=== PATIENT | female | born 1950 | race American Indian/Alaskan Native ===

== ENCOUNTER 2020-03-15 19:46 | Inpatient (IN) | payer MEDICARE, SELFPAY ==
[2020-03-15 20:19] VITALS: BP 160/86; PULSE 76; RESP 17; TEMP 36.8; O2SAT 96; BMI 26.5
[2020-03-15 21:05] LABS: Basophils % 0.3 %; Eosinophils # 0.1 10^3/uL (0.0-0.8); Eosinophils % 1.2 %; Hematocrit 36.6 % (37.0-47.0); Hemoglobin 12.5 g/dL (11.5-15.3); Lymphocytes # 1.6 10^3/uL (0.8-4.8); Lymphocytes % 26.3 %; Mean Corpuscular HGB Conc 34.2 g/dL (30.0-36.0); Mean Corpuscular Hemoglobin 30.2 pg (28.0-34.0); Mean Corpuscular Volume 88.4 fL (81-99); Mean Platelet Volume 11.1 fL (7.4-10.4); Monocytes # 0.8 10^3/uL (0.2-0.9); Monocytes % 13.1 %; Neutrophils # 3.49 10^3/uL (1.8-7.7); Neutrophils % 58.8 %; Nucleated Red Blood Cells % 0 %; Platelet Count 238 10^3/cmm (130-400); Red Blood Count 4.14 10^6/uL (4.1-5.3); Red Cell Distribution Width 11.7 % (12.1-15.1); White Blood Count 5.9 10^3/uL (4.0-10.0)
[2020-03-15 21:32] LABS: Alanine Aminotransferase 17 U/L (0-33); Albumin Level 4.6 g/dL (3.5-5.2); Alkaline Phosphatase 69 IU/L (35-105); Anion Gap 15.7 (5-19); Aspartate Amino Transferase 27 U/L (0-32); Blood Urea Nitrogen 14 mg/dL (8-23); Calcium 9.5 mg/dL (8.5-10.5); Carbon Dioxide 26 mmol/L (22-29); Chloride 85 mmol/L (98-107); Globulin 2.3 g/dL (1.3-4.6); Glucose 128 mg/dL (65-115); Lipase 16 U/L (13-60); Osmolality Calculated 254 mOsm/kg (285-295); Potassium 3.7 mmol/L (3.5-5.1); Sodium 123 mmol/L (136-145); Total Bilirubin 0.5 mg/dL (0.15-1.2); Total Protein 6.9 g/dL (6.6-8.7)
--- NOTE | 2020-03-15 21:37 | XRR_ITS ---
PROCEDURE INFORMATION: Exam: XR Chest, 1 View Exam date and time: 03/15/2020 9:48 PM Age: 69 years old Clinical indication: Smoker's cough; Patient HX: Cough 1 month, weight loss TECHNIQUE: Imaging protocol: XR of the chest Views: 1 view. COMPARISON: CR Chest 1 [place] [id number] 10/18/2017 10:06 PM FINDINGS: Lungs: Calcified mediastinal and hilar lymph nodes. Minimal focal irregular densities right mid and lower lung most likely reflecting scarring. Pleural space: Unremarkable. No pleural effusion. No pneumothorax. Heart/Mediastinum: Unremarkable. No cardiomegaly. Vasculature: Similar curvilinear opacity at the right rosa isela probably vasculature. Bones/joints: Unremarkable. XR/XR chest 1V portable [id number] IMPRESSION: 1. Stable chest without acute process. 2. Calcified granulomata.
--- NOTE | 2020-03-15 21:37 | CTR_ITS ---
PROCEDURE INFORMATION: Exam: CT Abdomen And Pelvis With Contrast Exam date and time: 03/15/2020 9:41 PM Age: 69 years old Clinical indication: Abdominal pain; Generalized; Prior surgery; Surgery date: 6+ months; Surgery type: Appy; Additional info: Abd pain TECHNIQUE: Imaging protocol: Computed tomography of the abdomen and pelvis with intravenous contrast. Radiation optimization: All CT scans at this facility use at least one of these dose optimization techniques: automated exposure control; mA and/or kV adjustment per patient size (includes targeted exams where dose is matched to clinical indication); or iterative reconstruction. Contrast material: OMNI; Contrast volume: 95 ml; Contrast route: INTRAVENOUS (IV); COMPARISON: No relevant prior studies available. RADIATION DOSE METRICS: Total DLP (mGy-cm): 613.22 FINDINGS: Mediastinal space: Small hiatal hernia. Liver: Calcified granulomas in the liver. Gallbladder and bile ducts: Distended gallbladder without visible wall thickening. The bile ducts are normal. Pancreas: Normal. No ductal dilation. Spleen: Calcified granulomas in the spleen. Adrenals: Normal. No mass. Kidneys and ureters: Likely benign cyst in the right kidney, Hounsfield units less than 20. Subcentimeter hypodensities in the left kidney are too small to characterize. No follow-up is recommended. Stomach and bowel: Mild diverticulosis of the descending and sigmoid colon without diverticulitis. The small bowel is unremarkable. Appendix: The appendix is not visualized. Intraperitoneal space: Unremarkable. No free air. No significant fluid collection. Vasculature: Unremarkable. No abdominal aortic aneurysm. Lymph nodes: Unremarkable. No enlarged lymph nodes. Bladder: Unremarkable as visualized. Reproductive: Prominent endometrium measuring approximately 2.1 cm in thickness. The ovaries are normal. Bones/joints: Degenerative lumbar spine with mild curvature. No compression fracture. Soft tissues: Unremarkable. CT/CT abdomen pelvis w con* [id number] IMPRESSION: 1. No acute abnormality identified in the abdomen or pelvis. 2. Thickened endometrium measuring up to 2.1 cm. A neoplastic process or hyperplasia is not excluded. Ultrasound follow-up recommended. 3. Fluid distended gallbladder with no visible wall thickening or inflammation. COMMENTS: Consistent with the [employer] [place] [employer]'s Incidental Findings Committee white paper (J Am Anthony Radiol 2018): Any incidental renal lesion less than 1.0 cm or classified as too small to characterize, or any incidental cystic renal lesion characterized as simple-appearing, is likely benign. No follow-up imaging is recommended for these lesions per consensus recommendations based on imaging criteria. Radiation Dose CTDIVOL = (mGy): DLP = 613.22 (mGy-cm)
--- NOTE | 2020-03-15 21:44 | W.ED.ABDPA2 ---
HPI - Abdominal Pain General: Chief Complaint: Abdominal Pain Stated Complaint: n/v/d Time Seen by Provider: 03/15/20 21:37 Source: patient Mode of arrival: ambulatory Limitations: no limitations History of Present Illness: HPI narrative: 69-year-old female who states she has had nausea along with vomiting along with cough abdominal pain over the last month. She states she had a 20 pound weight loss and also has been feeling generally weak. She denies any worsening or improving factors. She denies any fevers. Associated Symptoms: Reports nausea and vomiting; Denies chills, dysuria and fever(s) Review of Systems Const: Denies: fever(s), chills, body aches or change in appetite Eyes: Denies: blurry vision or eye discomfort ENMT: Denies: throat pain or dental pain Card: Denies: chest pain Resp: Denies: dyspnea GI: Reports: nausea and vomiting : Denies: dysuria Musc: Denies: neck pain or back pain Skin/Breast: Denies: rash Neuro: Denies: headache(s) Psych: Denies: depression Gavin/Lymph: Denies: easy bruising All/Imm: Denies: urticaria Physical Exam Const: COMMON NORMALS: no acute distress, patient oriented x3 and healthy appearing HENMT: COMMON NORMALS: normocephalic and atraumatic HEAD & SCALP: normocephalic and atraumatic Eye: COMMON NORMALS: Equal, round and reactive pupils present and EOMs intact bilaterally PUPIL: Yes Equal, round and reactive pupils present Neck/C-Spine: COMMON NORMALS: full ROM and supple Chest: COMMONS NORMALS: normal inspection of the chest and normal palpation of entire chest wall Resp: COMMON NORMALS: normal respiratory effort, No retractions, No use of accessory muscles and clear to auscultation bilaterally AUSCULTATION: clear to auscultation bilaterally Cardio: COMMON NORMALS: regular rate, regular rhythm and No murmurs present (Cardio) RATE: regular rate RHYTHM: regular rhythm GI: COMMON NORMALS: Normal to inspection, nondistended, normoactive bowel sounds present, Soft to palpation, non-tender and no masses PALPATION: Yes Soft to palpation Extremity: COMMON NORMALS: normal to inspection and full ROM Neuro: COMMON NORMALS: patient oriented x3, moves all extremities and no focal motor deficits Psych: COMMON NORMALS: mental status grossly normal, Normal thought process present and cooperative THOUGHT PROCESS: Normal thought process present Skin: COMMON NORMALS: no rashes or lesions noted and no wounds GENERAL SKIN EXAM: no rashes or lesions noted Course Vital Signs: Vital signs: Vital Signs Temperature 98.2 F 03/15/20 20:19 Pulse Rate 71 03/15/20 23:01 Respiratory Rate 18 03/15/20 23:01 Blood Pressure 168/100 03/15/20 23:11 Pulse Oximetry 98 03/15/20 23:01 MDM - Abdominal Pain MDM Narrative: Medical decision making narrative: Mary is a 69-year-old female presents here with generalized weakness is found to have hyponatremia. Patient also has a cystitis likely contributing to her weakness. I spoke to hospitalist Dr. Canas and will admit for IV fluids along with antibiotics. Patient has been stable on the ER. Lab Data: Labs: Lab Results 03/15/20 03/15/20 03/15/20 Range/Units 20:56 20:56 21:56 WBC 5.9 (4.0-10.0) 10^3/ uL RBC 4.14 (4.1-5.3) 10^6/u L Hgb 12.5 (11.5-15.3) g/dL Hct 36.6 L (37.0-47.0) % MCV 88.4 (81-99) fL MCH 30.2 (28.0-34.0) pg MCHC 34.2 (30.0-36.0) g/dL RDW 11.7 L (12.1-15.1) % Plt Count 238 (130-400) 10^3/c mm MPV 11.1 H (7.4-10.4) fL Neut % (Auto) 58.8 % Lymph % (Auto) 26.3 % Andrew % (Auto) 13.1 % Eos % (Auto) 1.2 % Baso % (Auto) 0.3 % Neut # (Auto) 3.49 (1.8-7.7) 10^3/u L Lymph # (Auto) 1.6 (0.8-4.8) 10^3/u L Andrew # (Auto) 0.8 (0.2-0.9) 10^3/u L Eos # (Auto) 0.1 (0.0-0.8) 10^3/u L Baso # (Auto) 0.0 (0.0-0.1) 10^3/u L Nucleated RBC % (a uto) 0 % Nucleated RBCs # 0.0 /100WBC Sodium 123 L (136-145) mmol/L Potassium 3.7 (3.5-5.1) mmol/L Chloride 85 L (98-107) mmol/L Carbon Dioxide 26 (22-29) mmol/L Anion Gap 15.7 (5-19) BUN 14 (8-23) mg/dL Creatinine 0.8 (0.5-0.9) mg/dL GFR Calculation Not Reportable Glucose 128 H (65-115) mg/dL Calculated Osmolal ity 254 L (285-295) mOsm/k g Calcium 9.5 (8.5-10.5) mg/dL Total Bilirubin 0.5 (0.15-1.2) mg/dL AST 27 (0-32) U/L ALT 17 (0-33) U/L Alkaline Phosphata se 69 (35-105) IU/L Total Protein 6.9 (6.6-8.7) g/dL Albumin 4.6 (3.5-5.2) g/dL Globulin 2.3 (1.3-4.6) g/dL Lipase 16 (13-60) U/L Urine Color Yellow (Yellow) Urine Appearance Cloudy (CLEAR) Urine pH 5 (5-7) Ur Specific Gravit y 1.020 (1.005-1.030) Urine Protein Trace (Negative) Urine Glucose (UA) Norm (Normal) Urine Ketones 1+ H (Negative) Urine Blood 3+ H (Negative) Urine Nitrate Negative (Negative) Urine Bilirubin Neg (NEGATIVE) Urine Urobilinogen Norm (Negative) mg/dL Ur Leukocyte Jolie ase 2+ H (Negative) Urine RBC 5-10 H (0-2) /hpf Urine WBC 25-40 H (0-5) /hpf Ur Squamous Epith Cells 5-10 H (0-5) Calcium Oxalate Cr ystal Too numerous to c nt H /hpf Amorphous Sediment Not Reportable Urine Bacteria 4+ H (NONE) Imaging Data ^: CT Abd/Pel: Attestation: I personally reviewed and interpreted this imaging study as follows: Radiologist's impression: [facility] [address] [place] [address] CT Scan Report Signed Patient: Carolina Mcgrath Unit #: [id number] : [id number] Age/Sex: 69 / F ADM Date: 03/15/20 Loc: ER Room/Bed: Attending Dr: Ordering Provider/Ordering MD: Zora Lindquist MD Date of Service: 03/15/20 Procedure(s): CT abdomen pelvis w con* [id number] Accession Number(s): [id number] Report Number: [id number] PROCEDURE INFORMATION: Exam: CT Abdomen And Pelvis With Contrast Exam date and time: 03/15/2020 9:41 PM Age: 69 years old Clinical indication: Abdominal pain; Generalized; Prior surgery; Surgery date: 6+ months; Surgery type: Appy; Additional info: Abd pain TECHNIQUE: Imaging protocol: Computed tomography of the abdomen and pelvis with intravenous contrast. Radiation optimization: All CT scans at this facility use at least one of these dose optimization techniques: automated exposure control; mA and/or kV adjustment per patient size (includes targeted exams where dose is matched to clinical indication); or iterative reconstruction. Contrast material: OMNI; Contrast volume: 95 ml; Contrast route: INTRAVENOUS (IV); COMPARISON: No relevant prior studies available. RADIATION DOSE METRICS: Total DLP (mGy-cm): 613.22 FINDINGS: Mediastinal space: Small hiatal hernia. Liver: Calcified granulomas in the liver. Gallbladder and bile ducts: Distended gallbladder without visible wall thickening. The bile ducts are normal. Pancreas: Normal. No ductal dilation. Spleen: Calcified granulomas in the spleen. Adrenals: Normal. No mass. Kidneys and ureters: Likely benign cyst in the right kidney, Hounsfield units less than 20. Subcentimeter hypodensities in the left kidney are too small to characterize. No follow-up is recommended. Stomach and bowel: Mild diverticulosis of the descending and sigmoid colon without diverticulitis. The small bowel is unremarkable. Appendix: The appendix is not visualized. Intraperitoneal space: Unremarkable. No free air. No significant fluid collection. Vasculature: Unremarkable. No abdominal aortic aneurysm. Lymph nodes: Unremarkable. No enlarged lymph nodes. Bladder: Unremarkable as visualized. Reproductive: Prominent endometrium measuring approximately 2.1 cm in thickness. The ovaries are normal. Bones/joints: Degenerative lumbar spine with mild curvature. No compression fracture. Soft tissues: Unremarkable. CT/CT abdomen pelvis w con* [id number] IMPRESSION: 1. No acute abnormality identified in the abdomen or pelvis. 2. Thickened endometrium measuring up to 2.1 cm. A neoplastic process or hyperplasia is not excluded. Ultrasound follow-up recommended. 3. Fluid distended gallbladder with no visible wall thickening or inflammation. Discharge Plan Discharge Patient Disposition: Admitted As Inpatient Admit Provider: Regla Jones Clinical Impression: Acute hyponatremia Acute cystitis Qualifiers: Hematuria presence: without hematuria Qualified Code(s): N30.00 - Acute cystitis without hematuria Condition: Stable Referrals: Connie Pedraza MD [Primary Care Provider] - Coding Level of Care Code ED Valve Setter for Chg Fwd Exam Comprehensive
[2020-03-15] MEDS: iohexol 300 mg/mL 100 mL Btl 95 ML IV (22:26)
[2020-03-15] MEDS: ondansetron 2 mg/ML SDV 2 mL 4 MG IVP (22:59)
[2020-03-15] MEDS: sodium chloride 0.9% 1,000 ML 999 ML IV (22:59)
[2020-03-15 23:01] VITALS: PULSE 71; RESP 18; O2SAT 98
[2020-03-15 23:09] LABS: Urine Appearance Cloudy (CLEAR); Urine Color Yellow (Yellow)
[2020-03-15 23:10] LABS: Add Urine Microscopic? YES; Bilirubin Urine Neg (NEGATIVE); Blood Urine 3+ (Negative); Glucose Urine UA Norm (Normal); Ketones Urine 1+ (Negative); Leukocyte Esterase Urine 2+ (Negative); Nitrate Urine Negative (Negative); Protein Urine Trace (Negative); Urobilinogen Urine Norm (Negative); pH Urine 5 (5-7)
[2020-03-15 23:11] VITALS: BP 168/100
[2020-03-15 23:12] LABS: Add Urine Culture? Yes; Bacteria Urine 4+; Calcium Oxalate Crystals Urine TOO NUMEROUS TO CNT /hpf; WBC Urine 25-40 /hpf (0-5)
--- NOTE | 2020-03-15 23:15 | PC.NURSE ---
WHILE AT BEDSIDE PT IS IN NAD.
--- NOTE | 2020-03-15 23:18 | PC.NURSE ---
REPORT GIVEN TO CARMELA WILSON ASSUMED CARE.
[2020-03-15] MEDS: cefTRIAXone 1,000 MG in sodium chloride 0.9% (plus) 50 ML 100 MG IV (23:22)
[2020-03-15 23:45] VITALS: BP 163/86; PULSE 71; RESP 18; O2SAT 98
--- NOTE | 2020-03-15 23:55 | P.HP_ITS ---
Providers/Chief Complaint Admitting Physician: Regla Jones MD Primary Care Provider: Connie Pedraza MD Chief Complaint: n/v/d History of Present Illness Carolina Mcgrath is a 69 year old female who does not carry significant past medical history other than hypertension diabetes acquired hypothyroidism coming in with chief complaint of regurgitation. Patient is stating that she retired 2 months ago since then she has not been eating well, she has lost about 50 pounds, every time she tries to eat she notices food regurgitation, she is also experiencing bouts of cough which would exacerbate and cause vomiting sometimes. She has been experiencing lethargy, fatigue. She lives alone, does not smoke, does not drink alcohol. About 2 months ago she was prescribed hydrochl orothiazide for her lower extremity edema, her last dose was 4 days ago. Today she came to the hospital because of her worsening regurgitation of food symptoms. She denies previous history of hypothyroidism. Currently denies fever, shortness of breath, chest pain, dysuria or bleeding episodes. She is also endorsing upper respite tract infection, allergies with sinus congestion. Her colonoscopy at age 48 was unremarkable Diagnosis in the ER be normal hemodynamics have been hypertension, hyponatremia sodium 128, he is denying symptoms of UTI, she has been given 1 L normal saline in the ER, CT abdomen revealed endometrial thickening, ultrasound of pelvis has been ordered Review of Systems Const: Reports: chills, body aches and fatigue; Denies: fever(s) Eyes: Denies: change in vision ENMT: Denies: throat pain Card: Denies: chest pain, palpitations, swelling of feet/ankles, dyspnea on exertion or orthopnea Resp: Denies: dyspnea GI: Reports: dysphagia; Denies: abdominal pain, nausea, vomiting, diarrhea, constipation or bloating : Denies: flank pain or difficulty voiding Musc: Denies: neck pain Skin/Breast: Denies: rash Neuro: Denies: headache(s) Psych: Denies: anxiety Endo: Denies: polyuria Gavin/Lymph: Denies: easy bruising All/Imm: Denies: urticaria Medications/Allergies Home Medications Medication Instructions Recorded Confirmed Last Taken Type citalopram 20 mg PO DAILY 03/16/20 03/16/20 03/15/20 History hydrochlorothiazide 25 mg PO DAILY 03/16/20 03/16/20 03/12/20 History levothyroxine 75 mcg PO DAILY 03/16/20 03/16/20 03/15/20 History lovastatin 20 mg PO DAILY 03/16/20 03/16/20 03/15/20 History metformin 500 mg PO BID 03/16/20 03/16/20 03/16/20 History metoprolol tartrate 50 mg PO BID 03/16/20 03/16/20 03/16/20 History Allergies Allergy/AdvReac Type Severity Reaction Status Date / Time No Known Allergies Allergy Verified 03/16/20 00:11 PFSH Acute PFSH: Medical History (Updated 03/16/20 @ 00:57 by Regla Jones MD) Asymmetric edema of both lower extremities Diabetes Hypertension Hypothyroidism Surgical History H/O thyroidectomy Hx of appendectomy Family History Denies family history of Hypertension Social History Smoking and tobacco status: never smoked Alcohol intake: never Substance/Drug Use: never Housing: House Vitals/I&O/Wt Last Vital Signs Temp 98.2 F 03/15/20 20:19 Pulse 71 03/15/20 23:45 Resp 18 03/15/20 23:45 BP 163/86 03/15/20 23:45 Pulse Ox 98 03/15/20 23:45 Weight last 48 hrs Weight 68.039 kg Physical Exam Narrative: EXAM NARRATIVE: Very pleasant elderly female Does not look extremely dehydrated No neurological signs or symptoms Nonfocal exam EOMI, PERRLA Appropriate mood and affect S1, S2 no tachycardia heart failure Lower extremity nonpitting edema Abdomen soft nontender nondistended bowel sound present Lungs are clear to auscultation Solid consistency thyroid nodule noticed without lymphadenopathy Data : 03/15/20 20:56 03/15/20 20:56 A&P Assessment and plan (1) Hyponatremia: Status: Acute (2) Regurgitation of food: Status: Acute (3) Unintentional weight loss: Status: Acute Additional A&P Information Hyponatremia Patient is endorsing poor p.o. intake, unintentional weight loss and food regurgitation and use of hydrochlorothiazide She is also taking citalopram I would resuscitate her with fluids for now because of mild dehydration obtain serum and urine osmolarity, urine sodium and creatinine level Obtain TSH, uric acid Sodium level check every 4 hours No neurological signs food regurgitation with unintentional weight loss She is above age 45 and has red flags as mentioned above would require EGD for diagnostic purposes No acute indication, she might need outpatient EGD follow-up I would request modified barium swallow in the morning Hypertension: I would not use hydrochlorothiazide, add lisinopril instead Type 2 diabetes: Sliding scale with consistent carb diet Full code DVT prophylaxis Lovenox Endometrial thickening on CT abdomen, pelvic ultrasound ordered Attestations Medical Necessity Statement*: Anticipating discharge in less than 48 hours, she might need outpatient EGD Hyponatremia need IV fluids agitation no active neurological signs, she is currently dehydrated endorses use of hydrochlorothiazide Time Spent in Patient Care: 50 minutes Coding Level of Care Code Acute Collective Bargaining Specialist for Britneyg Fwd Diagnoses Hyponatremia E87.1 Regurgitation of food R11.10 Unintentional weight loss R63.4
[2020-03-16] VITALS (7 sets, daily range): BP systolic 116–163; BP diastolic 72–83; PULSE 64–94; RESP 16–19; TEMP 36.6–37; O2SAT 95–98
[2020-03-16] MEDS: enoxaparin 40 mg/0.4 mL Syringe SUBCUT (00:36)
[2020-03-16] MEDS: sodium chloride 0.9% 1,000 ML 30 ML IV (00:36)
[2020-03-16 00:59] LABS: Sodium 122 mmol/L (136-145); Uric Acid 4.4 mg/dL (2.4-5.7)
[2020-03-16 01:29] LABS: Thyroid Stimulating Hormone 1.31 uIU/mL (0.27-4.20)
[2020-03-16 01:49] LABS: Urine Random Sodium 30 mmol/L
[2020-03-16 05:23] LABS: Basophils % 0.3 %; Eosinophils # 0.1 10^3/uL (0.0-0.8); Eosinophils % 1.5 %; Hematocrit 38.5 % (37.0-47.0); Hemoglobin 13.1 g/dL (11.5-15.3); Lymphocytes # 1.7 10^3/uL (0.8-4.8); Lymphocytes % 27.4 %; Mean Corpuscular Hemoglobin 30.1 pg (28.0-34.0); Mean Corpuscular Volume 88.5 fL (81-99); Mean Platelet Volume 11.3 fL (7.4-10.4); Monocytes # 0.7 10^3/uL (0.2-0.9); Monocytes % 11.7 %; Neutrophils # 3.63 10^3/uL (1.8-7.7); Neutrophils % 58.9 %; Nucleated Red Blood Cells % 0 %; Platelet Count 246 10^3/cmm (130-400); Red Blood Count 4.35 10^6/uL (4.1-5.3); Red Cell Distribution Width 11.7 % (12.1-15.1); White Blood Count 6.2 10^3/uL (4.0-10.0)
[2020-03-16 05:36] LABS: Anion Gap 14.7 (5-19); Blood Urea Nitrogen 10 mg/dL (8-23); Calcium 9.5 mg/dL (8.5-10.5); Carbon Dioxide 26 mmol/L (22-29); Chloride 92 mmol/L (98-107); Glucose 102 mg/dL (65-115); Osmolality Calculated 264 mOsm/kg (285-295); Potassium 3.7 mmol/L (3.5-5.1); Sodium 129 mmol/L (136-145)
[2020-03-16 06:57] LABS: Glucose Point of Care 97 mg/dL (70-110)
--- NOTE | 2020-03-16 07:00 | US_ITS ---
WS: [id number] ULTRASOUND PELVIS TECHNIQUE: Transabdominal. CLINICAL INFORMATION: thickened endometrium : No. COMPARISON: CT abdomen pelvis March 15, 2020 FINDINGS: Uterus Orientation: Anteverted. Size: 6.51 cm X 2.9 cm Masses: None. Cervix: Incidental nabothian cysts in the cervix. Endometrium: Abnormally thickened with some cystic change Endometrium thickness: 1.8 cm. Adnexa: Ovaries not visualized. No adnexal masses. Free fluid: None. Other findings: None. US/US pelvic complete* [id number] IMPRESSION: 1. Thickened endometrium measuring 17 mm abnormal in a postmenopausal patient and suspicious for neoplasia. Recommend hysteroscopy for evaluation 2. Ovaries not visualized. No adnexal masses. 3. Incidental nabothian cysts within the cervix.
[2020-03-16 09:16] LABS: Sodium 130 mmol/L (136-145)
--- NOTE | 2020-03-16 09:49 | FL_ITS ---
WS: [id number] ESOPHAGRAM TECHNIQUE: Double contrast examination was performed with thin and thick barium. Upright and SEN imag es were obtained. CLINICAL INFORMATION: food regurgitation COMPARISON: None. FINDINGS: Prior postoperative changes thyroid surgery Swallowing: Normal oropharyngeal phase. Mild penetration with thin liquids which subsequently resolve s. No naomie aspiration. Esophagus: No evidence of stricture or obstruction. Moderate esophageal hiatal hernia. No significant dysmotility. Normal emptying on the upright imaging Gastroesophageal reflux: Prominent reflux is visualized to the thoracic inlet in the supine position. Fluoroscopy time: 2.9 minutes. Discussed with Raf Ray MD at 03/16/2020 4:33 PM. FL/FL barium swallow [id number] IMPRESSION: 1. Moderate esophageal hiatal hernia with prominent reflux to the thoracic inl et on the supine imaging. 2. No significant esophageal dysmotility. No stricture or obstruction. Normal emptying on the upright imaging. 3. Tiny amount of penetration x1 with thin liquids. This subsequently resolves with additional swallows. No naomie aspiration. 4. Evidence of prior thyroid surgery with surgical clips.
[2020-03-16] MEDS: levothyroxine 150 mcg Tablet 75 MCG PO (09:52)
[2020-03-16] MEDS: metoprolol tartrate 50 mg Tablet PO ×2 (09:53→17:39)
[2020-03-16] MEDS: lisinopril 10 mg Tablet PO (09:53)
--- NOTE | 2020-03-16 10:16 | PC.CHAP ---
Pastoral Care Encounter/Spiritual Assessment Type of Contact [] Declined senior communications engineer visit [] Patient/Family/Request visit [] Outpatient visit [] Follow-up visit [] Physician referral [] Code/Alert [x] Routine visit [] Staff referral [] Actively dying [] Patient sleeping [] Family support [] [] Out of room [] Palliative care [] [] Receiving care in room [] Pre-surgical visit [] Trauma [] Long length of stay [] ICU visit [] Other: Relational/Emotional Strength [] Patient feels connected with others/family/visitors/staff [] Distress [] Loneliness/isolation [] Abandonment Spirituality of Patient [] Person of Amelie [] Attends Sabianist of their Amelie [] Believes in Prayer [] Reads Bible or Anabaptism materials [] There are Spiritual issues to be addressed [place] Interventions [x] Prayer [x] Active listening [x] Non-anxious presence [x] Spiritual/emotional support [] Crisis/trauma care [] Spiritual counseling [] Bereavement support [] Provided bereavement packet [] Provided Bible/devotional materials [] Provided toy/stuffed animal, coloring book to patient or family member [] Provided Communion [] Anointing/[place] [] Salvation [x] Completed spiritual assessment [] Other: Impact on Illness or Injury [] Angry [] Fearful [] Anxious [] Often cries [] Exhaustion [] Unable to work [] Unable to attend faith [] Unable to walk/stand [] Unable to read [] Unable to drive [] Unable to eat/drink [] Unable to sleep [] Unable to be with family [] Patient intubated [] Other: Summary patient enjoyed breakfast.. setting on side of bed. Patient feeling so much stronger Time spent with patient 10 min
[2020-03-16 10:59] LABS: Glucose Point of Care 111 mg/dL (70-110)
[2020-03-16 12:32] LABS: Sodium 133 mmol/L (136-145)
[2020-03-16 16:37] LABS: Sodium 134 mmol/L (136-145)
[2020-03-16 17:00] LABS: Glucose Point of Care 146 mg/dL (70-110)
[2020-03-16] MEDS: dextrose 5% 1,000 ML 30 ML IV (17:39)
[2020-03-16 17:41] LABS: Estmated Average Glucose 134; Hemoglobin A1C 6.3 % (4.0-6.0)
[2020-03-16 19:45] LABS: Sodium 133 mmol/L (136-145)
--- NOTE | 2020-03-16 20:13 | P.PN_ITS ---
Subjective Subjective: Interval history: She is doing okay today. Has had no vomiting episodes here. No significant cough episodes. Reports cough episodes at home make her have heaves, and sometimes vomit some amounts of food. She reports that is worse at night. She reports that sometimes to try to use the chance of regurgitation she drinks water before going to sleep. She denies she has slightly fewer symptoms after putting up several pillows. She denies any abdominal pain. She does report there is no cough with food or drink. Vitals/I&O/Wt Last Vital Signs Temp 97.9 F 03/16/20 16:00 Pulse 73 03/16/20 16:00 Resp 17 03/16/20 16:00 BP 142/79 03/16/20 16:00 Pulse Ox 98 03/16/20 16:00 03/16/20 03/16/20 03/16/20 06:59 14:59 22:59 Intake Total 1170 / 1170 360 / 360 240 / 600 Output Total 1350 / 1350 250 / 250 1650 / 1900 Balance -180 / -180 110 / 110 -1410 / -1300 Weight last 48 hrs Weight 68.039 kg Physical Exam Const: COMMON NORMALS: no acute distress and patient oriented x3 GENERAL APPEARANCE: cooperative and comfortable NUTRITIONAL APPEARANCE: overweight ORIENTATION/CONSCIOUSNESS: Yes awake OTHER: Son is at bedside. HENMT: COMMON NORMALS: oropharynx normal Neck/C-Spine: COMMON NORMALS: no JVD Resp: COMMON NORMALS: normal respiratory effort and clear to auscultation bilaterally AUSCULTATION: clear to auscultation bilaterally Cardio: COMMON NORMALS: no JVD, regular rhythm, S1 normal heart sound present, S2 normal heart sound present and No murmurs present (Cardio) RHYTHM: regular rhythm HEART SOUNDS: S1 normal heart sound present and S2 normal heart sound present GI: COMMON NORMALS: Normal to inspection, nondistended, normoactive bowel sounds present, Soft to palpation and non-tender PALPATION: Yes Soft to palpation Extremity: COMMON NORMALS: no joint enlargement and no pedal edema Neuro: COMMON NORMALS: patient oriented x3 and moves all extremities Skin: COMMON NORMALS: no rashes or lesions noted GENERAL SKIN EXAM: no zacarias hes or lesions noted Data : 03/16/20 05:02 03/16/20 19:21 A&P Assessment and plan (1) Hyponatremia: Sodium rising quite quickly this morning, discontinued IV fluids cleaning team member, however, appears small rate was continued through the day, with some additional rise in sodium up to 134. She does not have symptoms, however, again instructed discontinuation of IV fluid, went ahead and started on D5W due to unknown chronicity of hyponatremia. Sodium level decreasing slightly to 133. Will monitor overnight, for now continue D5W, switch back to cardiac diet. Discussed with overnight physician who will follow-up level, and adjust her therapy. As discussed with her HCTZ should be discontinued on discharge. She states does not take very much salt at home, however, may need to liberalize salt intake somewhat after discharge. Status: Acute (2) Regurgitation of food: This appears to be occurring after bouts of cough, especially at night. We did modified barium swallow, it appears she has moderate hiatal hernia fairly pronounced regurgitation, especially, as well as laying flat. This appears most likely cause of her symptoms, discussed with her and her son regarding the results. Discussed also possibility of gastroparesis given diabetes and will need additional evaluation for this. She does also report some cough with food or drink occasionally, and so may benefit from additional evaluation by modified barium swallow, which per discussion with the radiology could not be done together. Due to persistent dyspepsia symptoms, would also benefit from EGD on nonurgent basis, discussed with family who are aware to inquire about this and make arrangements with primary care provider. Due to reflux being considered the cause of her majority of his symptoms for now, instructed on avoiding food at least 2 hours prior to going to sleep, elevating head of bed, as well as avoiding any foods that may cause relaxation of LES. If symptoms persistent consider referral for surgical repair of hiatal hernia. Discussed also with her and her son regarding finding of dilation of gallbladder, although she has no pain, and there are no findings suspicious of acute infection. If symptoms persist, despite additional treatment, or she develops pain, or other symptoms gallbladder may need additional evaluation. They are aware to discuss the finding with primary care provider. Would avoid MIKAELA inhibitor due to recurrent cough, with lisinopril previously prescribed on 02/01. She had taken it for a while, but consider ARB instead if needed. Was later discontinued. Status: Acute (3) Unintentional weight loss: She has had a colonoscopy less than 10 years ago, previously was a date with mammography and Pap smear. Currently does appear to have some thickening of endometrium, and this will need additional investigation as is concerning in her age. Otherwise please consider additional investigations for unintended weight loss. Some of this may be secondary to the above symptoms of dyspepsia, acid reflux, aspiration, however, additional evaluation for possible other head malignancy may need to be undertaken. She will be referred to gynecology on discharge to follow-up on endometrial thickening. Findings and symptoms di scussed with her. She verbalized understanding, is agreeable with plan. Status: Acute Additional A&P Information Endometrial thickening in postmenopausal age: As above. Needs additional gynecology follow-up for colposcopy/biopsy. Incidentally noted gallbladder dilation currently without signs of other abn ormal process Hypertension: DC hydrochlorothiazide. Lisinopril was used previously, started on 02/01, however, given over 2-week history of recurrent episodes of cough, would avoid lisinopril. This was discontinued by her primary care provider. Consider ARB instead. Type 2 diabetes: Sliding scale with consistent carb diet. Would benefit from additional evaluation on outpatient basis for gastroparesis given her symptoms. A1c is 6.3. Attestations Medical Necessity Statement*: Admission of over 2 midnights is needed for assessment of management of moderate hyponatremia with rapid increase of sodium. Coding Level of Care Code Acute Transportation Museum Helper for Britneyg Migueld Diagnoses Hyponatremia E87.1 Regurgitation of food R11.10 Unintentional weight loss R63.4
[2020-03-16 20:57] LABS: Glucose Point of Care 88 mg/dL (70-110)
[2020-03-16 22:52] LABS: Sodium 134 mmol/L (136-145)
[2020-03-17] VITALS: BP 147/68; PULSE 72; RESP 17; TEMP 36.4; O2SAT 97
[2020-03-17] MEDS: enoxaparin 40 mg/0.4 mL Syringe SUBCUT (00:21)
[2020-03-17 04:00] VITALS: BP 154/84; PULSE 71; RESP 18; TEMP 36.9; O2SAT 97
[2020-03-17 05:03] LABS: Add Urine Microscopic? YES; Bacteria Urine 1+; Bilirubin Urine Neg (NEGATIVE); Blood Urine 2+ (Negative); Glucose Urine UA Norm (Normal); Ketones Urine 1+ (Negative); Leukocyte Esterase Urine 1+ (Negative); Nitrate Urine Negative (Negative); Protein Urine Neg (Negative); RBC Urine 0-4 /hpf (0-2); Squamous Epithelial Cell Urine 0-4 (0-5); Urine Appearance Clear (CLEAR); Urine Color Yellow (Yellow); Urobilinogen Urine Norm (Negative); WBC Urine 0-4 /hpf (0-5); pH Urine 6.5 (5-7)
[2020-03-17 06:13] LABS: Blood Urea Nitrogen 8 mg/dL (8-23); Calcium 9.3 mg/dL (8.5-10.5); Carbon Dioxide 26 mmol/L (22-29); Chloride 99 mmol/L (98-107); Glucose 107 mg/dL (65-115); Osmolality Calculated 278 mOsm/kg (285-295); Sodium 136 mmol/L (136-145)
[2020-03-17 06:21] LABS: Anion Gap 14.7 (5-19); Potassium 3.7 mmol/L (3.5-5.1)
[2020-03-17 07:36] LABS: Glucose Point of Care 111 mg/dL (70-110)
[2020-03-17 07:52] VITALS: BP 132/78; PULSE 74; RESP 18; TEMP 36.8; O2SAT 98
[2020-03-17] MEDS: levothyroxine 150 mcg Tablet 75 MCG PO (08:52)
[2020-03-17] MEDS: metoprolol tartrate 50 mg Tablet PO (08:52)
[2020-03-17] MEDS: lisinopril 10 mg Tablet PO (08:52)
[2020-03-17 10:08] LABS: Sodium 133 mmol/L (136-145)
[2020-03-17 10:52] LABS: Glucose Point of Care 113 mg/dL (70-110)
[2020-03-17 11:17] VITALS: BP 146/71; PULSE 65; RESP 18; TEMP 36.2; O2SAT 98
--- NOTE | 2020-03-17 12:12 | P.DS_ITS ---
Discharge Providers Date of Admission: 03/16/20 19:28 Date of Discharge: March 17, 2020 Attending Provider at Admission: Regla Jones MD Attending Provider at Discharge: Raf Ray Primary Care Provider: Connie Pedraza MD Diagnoses at Discharge Discharge Diagnosis (1) Hyponatremia: Status: Acute Problem details: Significant hyponatremia on presentation, HCTZ discontinued. She was dehydrated. She also has a low salt intake. Please follow-up levels at office visit. (2) Regurgitation of food: Status: Acute Problem details: This appears to happen after/during severe cough spells. Worse at night. Appears possibly related to the moderate hiatal hernia, severe reflux, and also causing possible microaspiration. Please follow-up regards to additional evaluations for dyspepsia with unintended weight loss, with endoscopic ev aluation. Please refer to additional surgical assessment as needed for hiatal hernia in case of persistent symptoms. Please go over again with her with regards to strategies to reduce reflux disease. Please also follow-up on evaluation for gastroparesis. Any other evaluation as needed. (3) Unintentional weight loss: Status: Acute Problem details: Please follow-up with additional evaluation, depending on findings, will need endoscopic evaluation for food regurgitation, early satiety, with unintended weight loss as above. Needs follow-up with gynecology with regards to thickened endometrium. Additional follow-up as appropriate, depending on findings. (4) Gallbladder dilatation: Status: Acute Problem details: This was found incidentally, and does not appear to be symptomatic at this time. But please be aware, and follow-up as needed, or especially if she becomes symptomatic, or having other GI related symptoms not explained by other disorders noted here. (5) Acid reflux disease: Status: Acute Problem details: Severe reflux disease noted on barium swallow, with moderate hiatal hernia, in t he setting of diabetes, consideration of possible gastroparesis. Please follow- up as appropriate. Please go over with her again with regards to start is to reduce reflux, especially at night. Refer for follow-up with surgery as appropriate in case of persistent symptoms for evaluation of hiatal hernia. (6) Hiatal hernia: Status: Acute Problem details: Moderate in size (7) Endometrial thickening on ultrasound: Status: Acute Problem details: Needs follow-up with gynecology for colposcopy, biopsy (8) Cough: Status: Acute Problem details: Episodes of severe cough, worse at night, currently suspected perhaps related to regurgitation due to severe reflux, moderate hiatal hernia. Needs to be additionally evaluated for possible gastroparesis in the setting of diabetes, early satiety. In case cough persists, consider additional evaluation for other causes, possibly chronic lung disease. Coughing spells appear to lead to regurgitation episodes. Please also follow-up with her regarding modified barium swallow evaluation. She does report occasionally having some cough with food or drink. Reason for Visit Reason for Visit: n/v/d Hospital Course Hospital Course: Very pleasant 69-year-old lady was admitted for assessment management due to complaints of regurgitating food after severe spells of cough, worse at night, also noting early satiety, unintended weight loss of about 50 pounds, as well as occasionally noting cough with food or drink, experiencing fatigue. On presentation she was found dehydrated, with moderate severity hyponatremia due to hypovolemia, as well as HCTZ. For this she received IV hydration on admission with normal saline, with improvement in sodium, although did require short duration of D5W to slow down the rise of sodium. She remained asymptomatic. HCTZ was discontinued. Amlodipine is added instead. Lisinopril was not continued due to reports of recurrent bouts of cough for over 2 weeks, with previously taking lisinopril at home with prescription given on 02/01, consideration was given to perhaps chronic cough secondary to lisinopril, although this is somewhat rare, but would prefer to avoid at this time. She underwent evaluation by CT abdomen pelvis due to food regurgitation with finding incidentally of dilated gallbladder, although had no symptoms of gallbladder disease, no abdominal pain, no signs of acute infection while in the hospital, also incidentally noted thickened endometrium which was followed up by endometrial ultrasound with finding of 17 mm endometrial thickening. In postmenopausal patient this is concerning and needs close additional follow-up with gynecology for colposcopy, biopsy. She is referred for this. These findings have been discussed with her. Please also follow-up with regards to gallbladder and any change in symptoms. For now this does not appear to contribute to her presentation. She did undergo barium swallow evaluation which showed moderate hiatal hernia with severe reflux, and this is much worse when she lies down. This appears may be able to explain her symptoms of cough and food regurgitation, especially worse at night when she lays flat. She does say she drinks water before going to sleep. However, due to unintended weight loss, persistent dyspepsia, please refer her for additional evaluation by endoscopy to exclude any other causes like malignancy. She also may need additional evaluation to identify any other potential location of unidentified malignancy that may be responsible. Otherwise if nothing concerning is found, including on gynecology evaluation, her weight loss may be secondary to poor oral intake, although possibility of chronic lung disease may need to be explored as well, especially if symptoms do not improve with control of reflux. She did note occasional cough with food or drink, and so due to this is also referred for modified barium swallow evaluation which could not be done together with barium swallow during the hospitalization. Please follow-up with her with the results. Please consider referral to surgery as needed depending on clinical course, and if regurgitation symptoms persist and lead to further pulmonary symptoms, consider referral to surgery for repair of hiatal hernia. She is also referred for gastric emptying study due to severe reflux, and in the setting of diabetes to exclude gastroparesis. Please follow-up with her on this. During the office visit please also follow-up sodium levels, as well as blood pressures after discontinuation of HCTZ. Amlodipine is added. Physical Exam Const: COMMON NORMALS: no acute distress and patient oriented x3 GENERAL APPEARANCE: cooperative and comfortable NUTRITIONAL APPEARANCE: overweight ORIENTATION/CONSCIOUSNESS: Yes awake OTHER: Today she is feeling much better. States she is again feeling like her usual self, and requests return home. HENMT: COMMON NORMALS: oropharynx normal Neck/C-Spine: COMMON NORMALS: no JVD Resp: COMMON NORMALS: normal respiratory effort and clear to auscultation bilaterally AUSCULTATION: clear to auscultation bilaterally Cardio: COMMON NORMALS: no JVD, regular rhythm, S1 normal heart sound present, S2 normal heart sound present and No murmurs present (Cardio) RHYTHM: regular rhythm HEART SOUNDS: S1 normal heart sound present and S2 normal heart sound present GI: COMMON NORMALS: Normal to inspection, nondistended, normoactive bowel sounds present, Soft to palpation and non-tender PALPATION: Yes Soft to palpation Extremity: COMMON NORMALS: no joint enlargement and no pedal edema Neuro: COMMON NORMALS: patient oriented x3 and moves all extremities Skin: COMMON NORMALS: no rashes or lesions noted GENERAL SKIN EXAM: no rashes or lesions noted Discharge Data Data Completed and Pending: Completed Studies During Hospitalization Category Date Time Status CT abdomen pelvis w con* [id number] Urge nt Cat Scan 03/15/20 21:37 Completed [place] barium swallow [id number] Routine Exams 03/16/20 09:49 Completed XR chest 1V gianluca ble [id number] Urgent Exams 03/15/20 21:37 Completed US pelvic complet e* [id number] Routine Ultrasound 03/16/20 07:00 Completed Pending at discharge Category Date Time Status Basic Metabolic P mary carmen AM LABS Lab 03/18/20 04:00 Ordered Basic Metabolic P mary carmen AM LABS Lab 03/19/20 04:00 Ordered Osmolality Serum Routine Lab 03/16/20 00:00 Received Osmolality Urine Routine Lab 03/16/20 01:20 Received Urine Culture Sta t Lab 03/15/20 21:56 Results Labs from last 24 hours 03/17/20 03/17/20 03/17/20 10:49 09:12 07:30 Sodium 133 L Potassium Chloride Carbon Dioxide Anion Gap BUN Creatinine GFR Calculation Glucose POC Glucose 113 111 Estimat Average Gl ucose Hemoglobin A1c Calculated Osmolal ity Calcium Urine Color Urine Appearance Urine pH Ur Specific Gravit y Urine Protein Urine Glucose (UA) Urine Ketones Urine Blood Urine Nitrate Urine Bilirubin Urine Urobilinogen Ur Leukocyte Jolie ase Urine RBC Urine WBC Ur Squamous Epith Cells Amorphous Sediment Urine Bacteria 03/17/20 03/17/20 03/16/20 05:35 04:00 22:22 Sodium 136 134 L Potassium 3.7 Chloride 99 Carbon Dioxide 26 Anion Gap 14.7 BUN 8 Creatinine 0.6 GFR Calculation Not Reportable Glucose 107 POC Glucose Estimat Average Gl ucose Hemoglobin A1c Calculated Osmolal ity 278 L Calcium 9.3 Urine Color Yellow Urine Appearance Clear Urine pH 6.5 Ur Specific Gravit y 1.010 Urine Protein Neg Urine Glucose (UA) Norm Urine Ketones 1+ H Urine Blood 2+ H Urine Nitrate Negative Urine Bilirubin Neg Urine Urobilinogen Norm Ur Leukocyte Jolie ase 1+ H Urine RBC 0-4 H Urine WBC 0-4 H Ur Squamous Epith Cells 0-4 H Amorphous Sediment Not Reportable Urine Bacteria 1+ H 03/16/20 03/16/20 03/16/20 20:19 19:21 16:55 Sodium 133 L Potassium Chloride Carbon Dioxide Anion Gap BUN Creatinine GFR Calculation Glucose POC Glucose 88 146 Estimat Average Gl ucose Hemoglobin A1c Calculated Osmolal ity Calcium Urine Color Urine Appearance Urine pH Ur Specific Gravit y Urine Protein Urine Glucose (UA) Urine Ketones Urine Blood Urine Nitrate Urine Bilirubin Urine Urobilinogen Ur Leukocyte Jolie ase Urine RBC Urine WBC Ur Squamous Epith Cells Amorphous Sediment Urine Bacteria 03/16/20 03/16/20 03/16/20 16:13 16:13 12:06 Sodium 134 L 133 L Potassium Chloride Carbon Dioxide Anion Gap BUN Creatinine GFR Calculation Glucose POC Glucose Estimat Average Gl ucose 134 Hemoglobin A1c 6.3 H Calculated Osmolal ity Calcium Urine Color Urine Appearance Urine pH Ur Specific Gravit y Urine Protein Urine Glucose (UA) Urine Ketones Urine Blood Urine Nitrate Urine Bilirubin Urine Urobilinogen Ur Leukocyte Jolie ase Urine RBC Urine WBC Ur Squamous Epith Cells Amorphous Sediment Urine Bacteria Vitals: Last Vital Signs Temp 97.2 F L 03/17/20 11:17 Pulse 65 03/17/20 11:17 Resp 18 03/17/20 11:17 BP 146/71 03/17/20 11:17 Pulse Ox 98 03/17/20 11:17 Discharge Plan Discharge Patient Disposition: Home Condition: Stable Prescriptions: New amlodipine 5 mg tablet 5 mg PO DAILY Qty: 30 RF: 0 Continued metformin 500 mg tablet 500 mg PO BID RF: 0 metoprolol tartrate 50 mg tablet 50 mg PO BID RF: 0 levothyroxine 75 mcg tablet 75 mcg PO DAILY RF: 0 citalopram 20 mg tablet 20 mg PO DAILY RF: 0 lovastatin 20 mg tablet 20 mg PO DAILY RF: 0 Discontinued hydrochlorothiazide 25 mg tablet 25 mg PO DAILY RF: 0 Discharge Orders: Discharge Order (Routine); Ordered 03/17/20 Ordered By: Raf Ray Other Ambulatory Orders: [place] barium swallow modifd [id number] (Routine) Timeframe: 3 Days Facility: [facility] - Location: Radiology Ordered By: Raf Ray [place] gastric [place] [id number] (Routine) Timeframe: 1 Week Facility: [facility] - Location: Radiology Ordered By: Raf Ray Referrals: Connie Pedraza MD [Primary Care Provider] - 4-7 days (Please call patient at home with a hospital follow up appointment in 4-7 days. Faxed information to clinic) Jacek Sarmiento MD [Physician] - 1 week (Thickened endometrium in postmenopausal pt. Call patient at home with a follow up appointment in [address] Sarmiento. Faxed information to clinic.) Discharge Diet: As Directed and Diabetic Discharge Activity: Increase activity as tolerated Patient Instructions: Type 2 Diabetes, Diabetes and Diet, Amlodipine (By mouth), Urinary Tract Infection in Women (DC), Hyponatremia (DC) Activity Restrictions/Additional Instructions: Please follow-up with your primary care doctor to reassess sodium level due to hyponatremia. Monitor blood pressure 3 times daily, write down values and bring to your appointment with your doctor so they may adjust further your therapy. Hydrochlorothiazide was discontinued due to significantly low sodium and dehydration on presentation. Avoid limiting salt intake in your diet so strictly. If you experience dizziness, falls, fainting, or other abnormal symptoms, please seek medical attention without delay. Please continue to monitor your blood glucose. Continue consistent carbohydrate diet. Continue follow-up with your primary care provider to optimize diabetes control. Due to noted moderate size stomach hiatal hernia, please discuss with your primary care doctor regarding additional assessments and treatments for reflux disease. Please discuss with them endoscopic evaluation by EGD due to persistent dyspepsia symptoms and unintended weight loss to exclude any additional concerning findings like severe inflammation or malignancy. You are referred for gastric emptying study due to diabetes to exclude that your stomach is not affected by gastroparesis. Please discuss with your primary care doctor, and also discuss results of the study. Due to severe reflux avoid eating or drinking anything at least 2 hours prior to going to sleep, and elevate head of bed to about 35 degrees or more. Avoid foods such as alcohol, spicy foods, chocolate, coffee, mint, especially before going to sleep as they may worsen reflux. Please discuss with your doctor also regarding coughing occasionally after food or drink. Please follow-up with him with regards to results of modified barium swallow study which is a separate study from the one you had in the hospital. Please discuss with your primary care doctor regarding dilated gallbladder so they may be aware and follow-up as appropriate, or especially if you become symptomatic. Please discuss with your primary care doctor and follow-up also with gynecology regarding finding of thickened endometrium requiring additional evaluation to exclude concerning findings, possible malignancy. Discharge Attestations Time Spent in Discharge Care*: greater than 30 min Quality Metrics Clinical Quality Measures During this hospital stay, did patient experience: None Coding Level of Care Code Acute Enterprise Manager for g Fwd Diagnoses Hyponatremia E87.1 Regurgitation of food R11.10 Unintentional weight loss R63.4 Gallbladder dilatation K82.8 Acid reflux disease K21.9 Hiatal hernia K44.9 Endometrial thickening on ultrasound R93.89 Cough R05
[2020-03-17 13:20] VITALS: BP 146/71; PULSE 65; RESP 18; TEMP 36.2; O2SAT 98
[2020-03-19 15:00] LABS: Osmolality Urine 235 mOsm/kg (50-1200)
[2020-03-19 15:00] LABS: Osmolality Serum 260 mOsm/kg (278-305)
== END 2020-03-17 13:00 | disposition home or self-care (01) | DRG 641 ==
LOC: ER 21:37 → MEDSURG 23:22
PROVIDERS: Emergency Medicine; Admitting Provider Internal Medicine; PCP Internal Medicine; Visit Provider Internal Medicine
DX: E87.1 Hypo-osmolality and hyponatremia (principal); K21.9 Gastro-esophageal reflux disease without esophagitis; K44.9 Diaphragmatic hernia without obstruction or gangrene; E11.9 Type 2 diabetes mellitus without complications; Z79.84 Long term (current) use of oral hypoglycemic drugs; E03.9 Hypothyroidism, unspecified; I10 Essential (primary) hypertension
CPT/HCPCS: 12345; 36415; 36416; 71045; 74177; 74220; 76856; 80048; 80053; 81001; 81003; 82962; 83036; 83690; 83930; 83935; 84295; 84300; 84443; 84550; 85025; 87077; 87086; 87186; 96372; 96375; 99282; G0378; J0696; J1650; J1815; J2405; J7030; Q9967

== ENCOUNTER 2020-03-23 10:12 | Outpatient (CLI) | payer MEDICARE, SELFPAY ==
[2020-03-23 10:47] LABS: Basophils % 0.2 %; Eosinophils # 0.1 10^3/uL (0.0-0.8); Eosinophils % 2.3 %; Hematocrit 37.9 % (37.0-47.0); Hemoglobin 12.3 g/dL (11.5-15.3); Lymphocytes # 0.8 10^3/uL (0.8-4.8); Lymphocytes % 15.7 %; Mean Corpuscular HGB Conc 32.5 g/dL (30.0-36.0); Mean Corpuscular Hemoglobin 30.4 pg (28.0-34.0); Mean Corpuscular Volume 93.8 fL (81-99); Mean Platelet Volume 11.1 fL (7.4-10.4); Monocytes # 0.6 10^3/uL (0.2-0.9); Neutrophils # 3.73 10^3/uL (1.8-7.7); Neutrophils % 70.6 %; Nucleated Red Blood Cells % 0 %; Platelet Count 254 10^3/cmm (130-400); Red Blood Count 4.04 10^6/uL (4.1-5.3); Red Cell Distribution Width 12.5 % (12.1-15.1); White Blood Count 5.3 10^3/uL (4.0-10.0)
[2020-03-23 10:54] LABS: Bilirubin Urine Neg (NEGATIVE); Blood Urine 3+ (Negative); Glucose Urine UA Norm (Normal); Ketones Urine Negative (Negative); Leukocyte Esterase Urine 1+ (Negative); Nitrate Urine Negative (Negative); Protein Urine Trace (Negative); Urine Appearance Clear (CLEAR); Urine Color Yellow (Yellow); Urobilinogen Urine Neg (Negative); pH Urine 6 (5-7)
[2020-03-23 10:55] LABS: Add Urine Microscopic? YES
[2020-03-23 10:56] LABS: Add Urine Culture? No; Bacteria Urine TRACE; Mucus Urine 1+; RBC Urine 0-4 /hpf (0-2); Squamous Epithelial Cell Urine 0-4 (0-5); WBC Urine 0-4 /hpf (0-5)
[2020-03-23 11:13] LABS: Alanine Aminotransferase 16 U/L (0-33); Albumin Level 4.5 g/dL (3.5-5.2); Alkaline Phosphatase 58 IU/L (35-105); Anion Gap 14.2 (5-19); Aspartate Amino Transferase 21 U/L (0-32); Blood Urea Nitrogen 11 mg/dL (8-23); Calcium 10.2 mg/dL (8.5-10.5); Carbon Dioxide 27 mmol/L (22-29); Chloride 100 mmol/L (98-107); Globulin 2.2 g/dL (1.3-4.6); Glucose 166 mg/dL (65-115); Osmolality Calculated 284 mOsm/kg (285-295); Potassium 4.2 mmol/L (3.5-5.1); Sodium 137 mmol/L (136-145); Thyroid Stimulating Hormone 0.36 uIU/mL (0.27-4.20); Total Bilirubin 0.5 mg/dL (0.15-1.2); Total Protein 6.7 g/dL (6.6-8.7)
== END 2020-03-23 10:13 | disposition home or self-care (01) ==
PROVIDERS: PCP Internal Medicine; Visit Provider Nurse Practitioner Family
DX: E87.1 Hypo-osmolality and hyponatremia (principal); N39.0 Urinary tract infection, site not specified; I10 Essential (primary) hypertension; E03.9 Hypothyroidism, unspecified
CPT/HCPCS: 36415; 80053; 81001; 84443; 85025

== ENCOUNTER → 2020-04-26 13:16 | Outpatient (BNVA) | payer MEDICARE, SELFPAY | PROVIDERS: PCP Internal Medicine; Visit Provider Obstetrics & Gynecology | DX: R93.89 Abnormal findings on diagnostic imaging of other specified body structures (principal) | CPT/HCPCS: 88305 ==

== ENCOUNTER → 2020-05-25 13:09 | Outpatient (BNVA) | payer MEDICARE, SELFPAY | PROVIDERS: PCP Internal Medicine; Visit Provider Obstetrics & Gynecology | DX: Z11.59 Encounter for screening for other viral diseases (principal) | CPT/HCPCS: 87635 ==

== ENCOUNTER 2020-09-07 10:57 | Outpatient (CLI) | payer MEDICARE, SELFPAY ==
--- NOTE | 2020-09-07 11:07 | MM_ITS ---
WS: [id number] BILATERAL SCREENING DIGITAL MAMMOGRAM WITH CAD HISTORY: SCREENING COMPARISON: 07/28/2013 Bilateral CC and MLO views submitted. Computer aided detection analyzed. Breast composition: There are scattered areas of fibroglandular density. No suspicious masses, microc alcifications or architectural distortion. Benign calcifications in the RIGHT breast. MM/[place] [id number] IMPRESSION: BI-RADS: 2-Benign FOLLOW UP: 1 Year Follow-up
== END 2020-09-07 10:58 | disposition home or self-care (01) ==
PROVIDERS: PCP Internal Medicine; Visit Provider Nurse Practitioner Family
DX: Z12.31 Encounter for screening mammogram for malignant neoplasm of breast (principal)
CPT/HCPCS: 77067

== ENCOUNTER 2021-03-29 12:31 | Outpatient (CLI) | payer MEDICARE, SELFPAY ==
[2020-05-28 13:39] VITALS: BMI 26.5
--- NOTE | 2020-05-28 14:12 | ANES.PREANE2 ---
Pre-Anesthetic Assessment Pre-Anesthetic Assessment: Height/Weight: Height 1.6 m Weight 68.039 kg Preop Diagnosis: Thickened endometrium Proposed Procedure: Operation Date: 05/30/20 08:00 Proposed Procedures p Hysteroscopy with polypectomy with paracervical block 03423 86634 N93.9(Not Applicable) - Pramod Perez MD s Dilation And Curettage (D&C) 19587 N93.9(Not Applicable) - Pramod Perez MD Familial anesthetic complications: None Pulmonary: Pulmonary: Cough (severe cough at night which appears related to hiatal hernia, reflux and dysphagia) CV/HEM: CV/HEM: HTN GI: GI: Hiatus hernia Comments: hiatal hernia; regurge of food Metabolic: Metabolic: DM, Hyperlipidemia and Thyroid Anesthetic Plan: ASA status: 3 Anesthesia: General Other: Patient would require an RSI Risk of > 500 ml blood loss (7ml/kg in children): No Other Pertinent Information: Patient is supposed to have EGD to evaluate her coughing and possible microaspiration. patient will require RSI and pepcid, reglan, and bicitra before induction. PFSH Anesthesia PFSH: Medical History Asymmetric edema of both lower extremities Diabetes Hypertension Hypothyroidism Thickened endometrium Surgical History H/O thyroidectomy Hx of appendectomy Family History Mother Diabetes Hypertension Sister Diabetes Hypertension Brother Hypertension Denies family history of Clotting disorder Hyperlipidemia Anesthesia complication Bleeding disorder Stroke Social History (Updated 05/28/20 @ 08:57 by Heidi Young RN) Smoking and tobacco status: never smoked Alcohol intake: never Substance/Drug Use: never Data Anesthesia Cardiac Studies: No Data to Display
[2020-05-28 14:31] LABS: Basophils % 0.5 %; Eosinophils # 0.2 10^3/uL (0.0-0.8); Eosinophils % 2.9 %; Hemoglobin 12.3 g/dL (11.5-15.3); Lymphocytes # 1.5 10^3/uL (0.8-4.8); Lymphocytes % 23.8 %; Mean Corpuscular HGB Conc 32.4 g/dL (30.0-36.0); Mean Corpuscular Hemoglobin 30.3 pg (28.0-34.0); Mean Corpuscular Volume 93.6 fL (81-99); Monocytes # 0.9 10^3/uL (0.2-0.9); Monocytes % 13.5 %; Neutrophils # 3.72 10^3/uL (1.8-7.7); Nucleated Red Blood Cells % 0 %; Platelet Count 215 10^3/cmm (130-400); Red Blood Count 4.06 10^6/uL (4.1-5.3); Red Cell Distribution Width 12.3 % (12.1-15.1); White Blood Count 6.3 10^3/uL (4.0-10.0)
[2020-05-28 14:56] LABS: Add Urine Microscopic? YES; Bilirubin Urine Neg (Negative); Blood Urine 2+ (Negative); Glucose Urine UA Norm (Normal); Ketones Urine Negative (Negative); Leukocyte Esterase Urine 1+ (Negative); Nitrate Urine Negative (Negative); Protein Urine Neg (Negative); Specific Gravity, Urine 1.015 (1.005-1.030); Urine Appearance Clear (CLEAR); Urine Color Straw (Yellow); Urobilinogen Urine Norm (Negative); pH Urine 6 (5-7)
[2020-05-28 14:57] LABS: Add Urine Culture? Yes; Alanine Aminotransferase 29 U/L (0-33); Albumin Level 4.4 g/dL (3.5-5.2); Anion Gap 15.2 (5-19); Aspartate Amino Transferase 27 U/L (0-32); Bacteria Urine 1+ /hpf; Carbon Dioxide 26 mmol/L (22-29); Globulin 2.6 g/dL (1.3-4.6); Potassium 4.2 mmol/L (3.5-5.1); RBC Urine 0-4 /hpf (0-2); Squamous Epithelial Cell Urine 0-4 /hpf (0-5); Total Bilirubin 0.2 mg/dL (0.15-1.2); WBC Urine 0-4 /hpf (0-5)
[2020-05-28 15:10] LABS: Alkaline Phosphatase 112 IU/L (35-105); Blood Urea Nitrogen 11 mg/dL (8-23); Calcium 9.3 mg/dL (8.5-10.5); Chloride 94 mmol/L (98-107); Glucose 119 mg/dL (65-115); Osmolality Calculated 273 mOsm/kg (285-295); Sodium 131 mmol/L (136-145)
== END 2021-03-29 12:32 | disposition home or self-care (01) ==
LOC: OPS 12:32
PROVIDERS: PCP Internal Medicine; Visit Provider Obstetrics & Gynecology
DX: Z01.818 Encounter for other preprocedural examination (principal)
CPT/HCPCS: 36415; 80053; 81001; 85025; 86850; 86900; 87086

== ENCOUNTER → 2021-07-01 13:36 | Outpatient (BNVA) | payer MEDICARE, SELFPAY | PROVIDERS: PCP Internal Medicine; Referring Provider Nurse Practitioner Family; Visit Provider Internal Medicine | DX: E03.9 Hypothyroidism, unspecified (principal); Z90.09 Acquired absence of other part of head and neck; Z79.84 Long term (current) use of oral hypoglycemic drugs | CPT/HCPCS: 99204 ==

== ENCOUNTER → 2021-09-04 13:05 | Outpatient (BNVA) | payer MEDICARE, SELFPAY | PROVIDERS: PCP Internal Medicine; Referring Provider Nurse Practitioner Family; Visit Provider Nurse Practitioner Family | DX: N30.00 Acute cystitis without hematuria (principal) | CPT/HCPCS: 81003 ==

== ENCOUNTER → 2021-09-25 13:08 | Outpatient (BNVA) | payer MEDICARE, SELFPAY | PROVIDERS: PCP Internal Medicine; Visit Provider Internal Medicine | DX: E89.0 Postprocedural hypothyroidism (principal); Z90.09 Acquired absence of other part of head and neck | CPT/HCPCS: 99213; 99214 ==

== ENCOUNTER → 2021-12-05 15:08 | Outpatient (BNVA) | payer MEDICARE, SELFPAY | PROVIDERS: PCP Internal Medicine; Visit Provider Urology | DX: N30.20 Other chronic cystitis without hematuria (principal) | CPT/HCPCS: 81003 ==

== ENCOUNTER → 2022-01-31 11:14 | Outpatient (BNVA) | payer MEDICARE, SELFPAY | PROVIDERS: PCP Internal Medicine; Visit Provider Urology | DX: N30.20 Other chronic cystitis without hematuria (principal) | CPT/HCPCS: 81003; 99213 ==

== ENCOUNTER → 2022-03-26 13:24 | Outpatient (BNVA) | payer MEDICARE, SELFPAY | PROVIDERS: PCP Internal Medicine; Visit Provider Internal Medicine | DX: E89.0 Postprocedural hypothyroidism (principal); Z90.09 Acquired absence of other part of head and neck; I10 Essential (primary) hypertension | CPT/HCPCS: 99214 ==

== ENCOUNTER → 2022-07-29 15:55 | Outpatient (BNVA) | payer MEDICARE, SELFPAY | PROVIDERS: PCP Internal Medicine; Visit Provider Urology | DX: N30.20 Other chronic cystitis without hematuria (principal) | CPT/HCPCS: 51798; 99213 ==

== ENCOUNTER → 2023-04-28 15:17 | Outpatient (BNVA) | payer MEDICARE, SELFPAY | PROVIDERS: PCP Nurse Practitioner Family; Referring Provider Nurse Practitioner Family; Visit Provider Dermatology | DX: L57.0 Actinic keratosis (principal); D48.5 Neoplasm of uncertain behavior of skin; L82.1 Other seborrheic keratosis; D18.01 Hemangioma of skin and subcutaneous tissue | CPT/HCPCS: 11102; 17000; 17003; 99203 ==